=== PATIENT | male | born 2005 | race Caucasian/White ===

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

== ENCOUNTER 2023-11-05 13:01 | Emergency (ER) | payer MEDICAID ==
[2023-11-05 13:23] VITALS: PULSE 60; TEMP 98
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
[2023-11-05 14:15] VITALS: O2SAT 100
--- NOTE | 2023-11-05 14:26 | XRAY ---
Indication: Left upper quadrant pain. Multiple contiguous axial images obtained through the abdomen and pelvis without contrast. Comparison: None Lung bases clear. Heart is not enlarged. Noncontrasted stomach and bowel loops appear nonobstructed. Appendix not visualized. A few tiny hepatic calcified granulomas. No free fluid/air. Remaining liver, gallbladder, pancreas, spleen, adrenal glands, kidneys, ureters, bladder, and aorta are unremarkable for noncontrast exam. Osseous structures intact. No ventral or inguinal hernias. Impression: Negative CT abdomen/pelvis without contrast exam.
--- NOTE | 2023-11-05 14:38 | XRAY ---
Indication: Pain following injury one week ago. Comparison: None 2 view left ribs obtained. No bony, articular, or soft tissue abnormalities.
[2023-11-05 14:42] VITALS: BP 136/67
== END 2023-11-05 14:42 | disposition home or self-care (01) ==
LOC: ED 13:01
DX: S20.212A Contusion of left front wall of thorax, initial encounter (principal); V89.2XXA Person injured in unspecified motor-vehicle accident, traffic, initial encounter; R10.12 Left upper quadrant pain; R07.81 Pleurodynia; Z72.0 Tobacco use
CPT/HCPCS: 71100; 74176; 99283

== ENCOUNTER 2023-12-10 19:03 | Emergency (ER) | payer MEDICAID ==
[2023-12-10 19:34] VITALS: TEMP 98.1; O2SAT 99
[2023-12-10 19:34] LABS: Absolute Neutrophil Ct (ANC) 8.42 x10^3/uL (1.4-6.9); BASOPHIL % 0.6 % (0.0-0.4); Basophil (Absolute #) 0.07 x10^3/uL (0-0.4); Eosinophil % 1.3 % (0.00-5.0); Eosinophil (Absolute #) 0.14 x10^3/uL (0-0.5); Hematocrit 45.7 % (42-50); Hemoglobin 15.8 g/dL (12.5-18.0); IMMATURE GRAN # 0.04 x10^3u/L (0.00-0.03); IMMATURE GRAN % 0.4 % (0.00-0.4); Lymphocytes % 15.5 % (24.0-44.0); Mean Cell Volume 87.9 fL (78-100); Mean Corpuscular Hemoglobin 30.4 pg (26-32); Mean Corpuscular Hgb Concent. 34.6 g/dL (32-36); Mean Platelet Volume 10.7 fL (7.5-11.0); Monocyte (Absolute #) 0.63 x10^3/uL (0.0-1.3); Monocytes % 5.7 % (0.0-12.0); Neutrophil % 76.5 % (36.0-66.0); Platelet Count 312 x10^3/uL (150-450); Red Cell Distribution Width 11.8 % (11.5-14.0)
[2023-12-10] MEDS ORDERED: BABY ASPIRIN 81 MG CHEW ONE (19:37)
[2023-12-10] MEDS ORDERED: TORAdol 30 mg Injection ONE (19:37)
[2023-12-10] MEDS: TORAdol 30 mg Injection IV ONE (19:38)
[2023-12-10] MEDS: BABY ASPIRIN 81 MG CHEW PO ONE (19:38)
[2023-12-10 19:39] LABS: ALBUMIN 4.2 g/dL (3.5-5.0); ANION GAP 12.3 MEQ/L (5-15); BILIRUBIN,TOTAL 0.7 mg/dL (0.2-1.3); Calcium 9.3 mg/dL (8.4-10.2); Creatinine 1 1.01 mg/dL (0.66-1.25); D-DIMER QUANTITATIVE < 0.19 mg/L (0.0-0.50); Direct Bilirubin 0.2 mg/dL (0.0-0.4); EST GLOMERULAR FILTRATION RATE 109.2 ML/MIN; INR 1.02 (0.8-3.0); PROTIME 11.1 SECONDS (9.4-12.5); PTT 25.9 SECONDS (25.1-36.5); Potassium 3.8 mmol/L (3.5-5.1); Total Protein 7.1 g/dL (6.3-8.2)
[2023-12-10 19:51] LABS: NT PRO BNPII < 20.0 pg/mL (<300); TROPONIN < 0.012 ng/mL (0.000-0.033)
--- NOTE | 2023-12-10 20:46 | ERPHSYRPT ---
- History of Present Illness Time Seen by Provider: 12/10/23 19:45 Historian: patient Exam Limitations: no limitations Patient Subjective Stated Complaint: pt states that while working at approx 1900 on Wednesday12/07/23 he started experiencing bilat upper chest "pressure" that has been constant since that time. he rates it 7/10 and reports it is associated with intermittent MEEK and dizziness. denies dizziness at this time. Triage Nursing Assessment: pt ambulated to room 4 independently with slow steady gait. pt is alert and oriented times three, able to move all extremities, able to speak in complete sentences, and with resp even and unlabored. heart sounds present and regular upon auscultation. bilat anterior/ posterior lung sounds clear throughout. bilat radial and pedal pulses palpable. no JVD or edema noted. skin warm, dry, pink, and intact. reports MEEK and bilat upper chest pain is nonradiating, constant, rated 7/10, and described as pressure. denies lightheadedness, dizziness, n/v, diarrhea, constipation, difficulty with urinary or bowel elimination, change in appetite, fever, cough, chills, sob, or difficulty breathing. Physician History: 18 years old healthy male with history of occasional smoking presented in the ER with complains of chest pain across dull aching to pressure moderate intensity without any significant aggravating or relieving factors, constant for the last 3 days. No associated palpitations or shortness of breath. Does report feeling dizziness and headache at times. Currently patient does not have any headache or dizziness. No fever chills or cough reported. No history of coronary artery disease or chest pains in the past. No known sick contact. Patient reports it feels as if his ribs are being pushed. Aspirin Treatment Today: no aspirin today Allergies/Adverse Reactions: No Known Drug Allergies Allergy (Verified 12/10/23 19:06) Home Medications: No Reportable Medications [No Reported Medications] 12/10/23 [History] Hx Tetanus, Diphtheria Vaccination/Date Given: Yes Hx Influenza Vaccination/Date Given: No Hx Pneumococcal Vaccination/Date Given: No Immunizations Up to Date: No Travel Risk - International Travel Have you traveled outside of the country in past 3 weeks: No - Emerging Infectious Disease Are you exhibiting symptoms associated with any current EIDs: No - Review of Systems Constitutional: No Symptoms Eyes: No Symptoms Ears, Nose, & Throat: No Symptoms Cardiac: Chest Pain Abdominal/Gastrointestinal: No Symptoms Genitourinary Symptoms: No Symptoms Musculoskeletal: No Symptoms Skin: No Symptoms Neurological: No Symptoms Psychological: No Symptoms Endocrine: No Symptoms Hematologic/Lymphatic: No Symptoms - Past Medical History Pertinent Past Medical History: Yes Neurological History: No Pertinent History ENT History: No Pertinent History Cardiac History: No Pertinent History Respiratory History: Asthma Endocrine Medical History: No Pertinent History Musculoskeletal History: Other GI Medical History: No Pertinent History History: No Pertinent History Psycho-Social History: Bipolar Male Reproductive Disorders: No Pertinent History Other Medical History: ADHD, scoliosis - Past Surgical History Past Surgical History: Yes Neuro Surgical History: No Pertinent History Cardiac: No Pertinent History Respiratory: No Pertinent History Gastrointestinal: No Pertinent History Genitourinary: No Pertinent History Musculoskeletal: Orthopedic Surgery Male Surgical History: No Pertinent History Other Surgical History: right hand- fracture repair - Social History Smoking Status: Current every day smoker How long have you smoked: 10yo Exposure to second hand smoke: Yes Drug Use: none Patient Lives Alone: No - Nursing Vital Signs Nursing Vital Signs: Initial Vital Signs Pulse Rate 72 12/10/23 19:03 Respiratory Rate 15 12/10/23 19:03 Blood Pressure 143/73 12/10/23 19:03 O2 Sat by Pulse Oximetry 98 12/10/23 19:03 Pain Scale Pain Intensity 6 - Physical Exam General Appearance: no apparent distress, alert Eye Exam: PERRL/EOMI Ears, Nose, Throat Exam: normal ENT inspection Neck Exam: normal inspection, non-tender, supple, full range of motion Respiratory Exam: normal breath sounds, lungs clear, No chest tenderness Cardiovascular Exam: regular rate/rhythm, normal heart sounds Gastrointestinal/Abdomen Exam: soft, No tenderness Back Exam: normal inspection, normal range of motion Extremity Exam: normal inspection, normal range of motion Neurologic Exam: alert, oriented x 3, cooperative, 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, normal mood/affect, nml cerebellar function, nml station & gait, sensation nml, No motor deficits Skin Exam: normal color SpO2 Interpretation: normal SpO2: 99 O2 Delivery: Room Air - Course EKG Interpreted by Me: RATE (75), Sinus Rhythm, NORMAL AXIS, NORMAL QRS Ordered Tests: Medication Summary Discontinued Medications Generic Name Dose Route Start Last Admin Trade Name Freq PRN Reason Stop Dose Admin Aspirin 324 mg 12/10/23 19:21 04/26/24 19:38 Aspirin 81 Mg Tab.Chew PO 12/10/23 19:22 324 mg STAT ONE Administration Aspirin Confirm 12/10/23 19:37 Aspirin 81 Mg Tab.Chew Administered 12/10/23 19:38 Dose 324 mg .ROUTE .STK-MED ONE Ketorolac Tromethamine 30 mg 12/10/23 19:29 12/10/23 19:38 Ketorolac Tromethamine 30 Mg/Ml Inj IV 12/10/23 19:30 30 mg STAT ONE Administration Ketorolac Tromethamine Confirm 12/10/23 19:37 Ketorolac Tromethamine 30 Mg/Ml Inj Administered 12/10/23 19:38 Dose 30 mg .ROUTE .CamStent-MED ONE Lab/Rad Data: Laboratory Result Diagrams 12/10/23 19:27 12/10/23 19:27 Laboratory Results 12/10/23 12/10/23 12/10/23 Range/Units 19:27 19:27 19:27 WBC (4.0-10.5) x10^3/uL RBC (4.1-5.6) x10^6/uL Hgb (12.5-18.0) g/dL Hct (42-50) % MCV (78-100) fL MCH (26-32) pg MCHC (32-36) g/dL RDW (11.5-14.0) % Plt Count (150-450) x10^3/uL MPV (7.5-11.0) fL Gran % (36.0-66.0) % Immature Gran % (Auto) (0.00-0.4) % Nucleat RBC Rel Count (0.00-0.1) % Eos # (Auto) (0-0.5) x10^3/uL Immature Gran # (Auto) (0.00-0.03) x10^3u/L Absolute Lymphs (auto) (1.0-4.6) x10^3/uL Absolute Monos (auto) (0.0-1.3) x10^3/uL Absolute Nucleated RBC (0.00-0.01) x10^3u/L Lymphocytes % (24.0-44.0) % Monocytes % (0.0-12.0) % Eosinophils % (0.00-5.0) % Basophils % (0.0-0.4) % Absolute Granulocytes (1.4-6.9) x10^3/uL Basophils # (0-0.4) x10^3/uL PT 11.1 (9.4-12.5) SECONDS INR 1.02 (0.8-3.0) APTT 25.9 (25.1-36.5) SECONDS D-Dimer < 0.19 (0.0-0.50) mg/L Sodium 143 (135-145) mmol/L Potassium 3.8 (3.5-5.1) mmol/L Chloride 108 H (98-107) mmol/L Carbon Dioxide 26 (22-30) mmol/L Anion Gap 12.3 (5-15) MEQ/L BUN 10 (9-20) mg/dL Creatinine 1.01 (0.66-1.25) mg/dL Estimated GFR 109.2 ML/MIN Glucose 116 H (74-106) mg/dL Calcium 9.3 (8.4-10.2) mg/dL Total Bilirubin 0.70 (0.2-1.3) mg/dL Direct Bilirubin 0.2 (0.0-0.4) mg/dL AST 18 (17-59) U/L ALT 14 (0-50) U/L Alkaline Phosphatase 56 (38-126) U/L Creatine Kinase 75 (55-170) U/L Troponin I < 0.012 (0.000-0.033) ng/mL NT-Pro-B Natriuret Pep < 20.0 (<300) pg/mL Serum Total Protein 7.1 (6.3-8.2) g/dL Albumin 4.2 (3.5-5.0) g/dL 12/10/23 Range/Units 19:27 WBC 11.0 H (4.0-10.5) x10^3/uL RBC 5.20 (4.1-5.6) x10^6/uL Hgb 15.8 (12.5-18.0) g/dL Hct 45.7 (42-50) % MCV 87.9 (78-100) fL MCH 30.4 (26-32) pg MCHC 34.6 (32-36) g/dL RDW 11.8 (11.5-14.0) % Plt Count 312 (150-450) x10^3/uL MPV 10.7 (7.5-11.0) fL Gran % 76.5 H (36.0-66.0) % Immature Gran % (Auto) 0.4 (0.00-0.4) % Nucleat RBC Rel Count 0.0 (0.00-0.1) % Eos # (Auto) 0.14 (0-0.5) x10^3/uL Immature Gran # (Auto) 0.04 H (0.00-0.03) x10^3u/L Absolute Lymphs (auto) 1.70 (1.0-4.6) x10^3/uL Absolute Monos (auto) 0.63 (0.0-1.3) x10^3/uL Absolute Nucleated RBC 0.00 (0.00-0.01) x10^3u/L Lymphocytes % 15.5 L (24.0-44.0) % Monocytes % 5.7 (0.0-12.0) % Eosinophils % 1.3 (0.00-5.0) % Basophils % 0.6 (0.0-0.4) % Absolute Granulocytes 8.42 H (1.4-6.9) x10^3/uL Basophils # 0.07 (0-0.4) x10^3/uL PT (9.4-12.5) SECONDS INR (0.8-3.0) APTT (25.1-36.5) SECONDS D-Dimer (0.0-0.50) mg/L Sodium (135-145) mmol/L Potassium (3.5-5.1) mmol/L Chloride (98-107) mmol/L Carbon Dioxide (22-30) mmol/L Anion Gap (5-15) MEQ/L BUN (9-20) mg/dL Creatinine (0.66-1.25) mg/dL Estimated GFR ML/MIN Glucose (74-106) mg/dL Calcium (8.4-10.2) mg/dL Total Bilirubin (0.2-1.3) mg/dL Direct Bilirubin (0.0-0.4) mg/dL AST (17-59) U/L ALT (0-50) U/L Alkaline Phosphatase (38-126) U/L Creatine Kinase (55-170) U/L Troponin I (0.000-0.033) ng/mL NT-Pro-B Natriuret Pep (<300) pg/mL Serum Total Protein (6.3-8.2) g/dL Albumin (3.5-5.0) g/dL - Progress Progress: improved, re-examined Air Movement: good Progress Note: 12/10/23 20:44 18 years old is evaluated for chest pain for the last 3 days. Patient has no difficulty breathing or palpitations. No tachypnea or tachycardia. Lungs bilateral clear to auscultation. Not in any distress. EKG is normal sinus rhythm with no acute ischemic changes. Negative troponins and D-dimer. Normal white count, fairly unremarkable chemistries. Chest x-ray negative for any acute cardiopulmonary findings reviewed by me, official report is pending. With his chest pain going on for the last 3 days and negative troponin I do not think patient needs second troponin, is low heart score, do not think patient needs to be admitted, will have him outpatient follow-up. He is feeling better after Toradol and aspirin. Discussed signs symptoms of worsening needing return to ER which she seems understanding. Counseled pt/family regarding: lab results, diagnosis, need for follow-up, rad results, smoking cessation Medical Desision Making - Diagnostic Testing Diagnostic test were ordered, analyzed, and reviewed by me: Yes Radiological Interpretation: Interpreted by me, Reviewed by me - Departure Departure Disposition: Home Clinical Impression: Atypical chest pain Condition: Stable Critical Care Time: No Referrals: MIKAEL LOJA MD [Primary Care Provider] - Follow Up with PCP/3 days Instructions: Angina (DC), Chest Pain (DC) Additional Instructions: Take Tylenol/ibuprofen as needed. Follow-up with primary care for reevaluation and may need referral for cardiology if has persistent chest pain. Return to ER for worsening chest pain or if having difficulty breathing, palpitations, dizziness lightheadedness etc.
[2023-12-10 20:50] VITALS: BP 106/60; PULSE 51; RESP 14
--- NOTE | 2023-12-11 07:43 | XRAY ---
Indication: Chest pain. Comparison: May 18, 2023 Portable apical lordotic chest again hyperinflated and clear. Heart not enlarged. Bony thorax intact. No new/acute findings.
== END 2023-12-10 21:21 | disposition home or self-care (01) ==
LOC: ED 19:03
DX: R07.89 Other chest pain (principal); Z72.0 Tobacco use
CPT/HCPCS: 36000; 36415; 71045; 80053; 82248; 82550; 83880; 84484; 85025; 85379; 85610; 85730; 93005; 93041; 94760; 96374; 99284; J1885; A9270-GY

== ENCOUNTER 2024-09-20 19:06 | Emergency (ER) | payer MEDICAID ==
[2024-09-20] MEDS ORDERED: XYLOCAINE 1% HCL 20 ML MDV IJ ONE (19:07)
[2024-09-20 20:13] VITALS: RESP 18; TEMP 99.6; O2SAT 100
[2024-09-20 20:15] VITALS: BP 121/72; PULSE 69
[2024-09-20] MEDS ORDERED: TORAdol 30 mg Injection ONE (20:19)
[2024-09-20] MEDS ORDERED: Rocephin 1000 MG INJ ONE (20:20)
[2024-09-20] MEDS ORDERED: DELTASONE 20 MG ONE (20:20)
[2024-09-20] MEDS ORDERED: XYLOCAINE 1% HCL 20 ML MDV ONE (20:20)
[2024-09-20] MEDS: Rocephin 1000 MG INJ IM ONE (20:21)
[2024-09-20] MEDS: TORAdol 30 mg Injection IM ONE (20:21)
[2024-09-20] MEDS: DELTASONE 20 MG PO ONE (20:21)
--- NOTE | 2024-09-20 20:24 | ERPHSYRPT ---
- History of Present Illness Time Seen by Provider: 09/20/24 20:17 Source: patient Exam Limitations: no limitations Patient Subjective Stated Complaint: c/o swollen sorethroat Triage Nursing Assessment: patient brought to ED by girlfriend with c/o sore throat and swollen lymph nodes. patient states that symptoms started three days ago and haven't gotten better. patient has slightly swollen lymph nodes, throat is slightly reddened, unable to assess ear at this time, patient denies ear pain or drainage. vitals wnl, skin w/n/d, gait steady, afevrile, patient doesn't appear to be in any distress at this time. Physician History: Patient is a 18-year-old male presents to our ED for evaluation of a sore throat and anterior cervical lymphadenopathy. Patient reports her symptoms started approximately 3 days ago. Symptoms have been progressive. Patient states it "hurts to swallow". Patient tolerating oral secretions well. Patient is conversant and displaying no distress. Patient denies ear pain. No trauma no f ever. Patient states he is otherwise healthy. He voices no other complaints or concerns at this time. No cough Portions of this note were created with voice recognition technology. There may be grammatical, spelling, punctuation or sound alike errors Timing/Duration: day(s) (3 days ago) Severity: moderate Modifying Factors: Improves With: nothing Associated Symptoms: denies symptoms Allergies/Adverse Reactions: No Known Drug Allergies Allergy (Verified 09/20/24 20:13) Hx Tetanus, Diphtheria Vaccination/Date Given: No Hx Influenza Vaccination/Date Given: No Hx Pneumococcal Vaccination/Date Given: No Travel Risk - International Travel Have you traveled outside of the country in past 3 weeks: No - Emerging Infectious Disease Are you exhibiting symptoms associated with any current EIDs: No - Review of Systems Constitutional: No Symptoms, No Fever, No Chills Eyes: No Symptoms Ears, Nose, & Throat: No Symptoms Respiratory: No Symptoms, No Cough, No Dyspnea Cardiac: No Symptoms, No Chest Pain, No Edema, No Syncope Abdominal/Gastrointestinal: No Symptoms, No Abdominal Pain, No Nausea, No Vomiting, No Diarrhea Genitourinary Symptoms: No Symptoms, No Dysuria Musculoskeletal: No Symptoms, No Back Pain, No Neck Pain Skin: No Symptoms, No Rash Neurological: No Symptoms, No Dizziness, No Focal Weakness, No Sensory Changes Psychological: No Symptoms Endocrine: No Symptoms Hematologic/Lymphatic: No Symptoms Immunological/Allergic: No Symptoms All Other Systems: Reviewed and Negative - Past Medical History Pertinent Past Medical History: Yes Neurological History: Migraines ENT History: No Pertinent History Cardiac History: No Pertinent History Respiratory History: Asthma Endocrine Medical History: No Pertinent History Musculoskeletal History: Fractures GI Medical History: No Pertinent History History: No Pertinent History Psycho-Social History: Bipolar Male Reproductive Disorders: No Pertinent History Other Medical History: fx right hand - Past Surgical History Past Surgical History: No Neuro Surgical History: No Pertinent History Cardiac: No Pertinent History Respiratory: No Pertinent History Gastrointestinal: No Pertinent History Genitourinary: No Pertinent History Musculoskeletal: Orthopedic Surgery Male Surgical History: No Pertinent History Other Surgical History: right hand repair - Social History Smoking Status: Never smoker How long have you smoked: 10yo Exposure to second hand smoke: No Drug Use: none Patient Lives Alone: No - Social Determinants of Health Will the patient participate in the screening: Yes Do you worry about a steady place to live?: No Do you have any problems with any of the following?: No known problems In the past 12 months,have you had to go without utilities?: No Transportation Issues: No Has anyone in your support network made you feel unsafe?: No Have you or anyone in your house had to go without enough: No - Nursing Vital Signs Nursing Vital Signs: Initial Vital Signs Temperature 99.6 F 09/20/24 19:56 Pulse Rate 77 09/20/24 19:56 Respiratory Rate 18 09/20/24 19:56 Blood Pressure 127/83 09/20/24 19:56 O2 Sat by Pulse Oximetry 100 09/20/24 19:56 Pain Scale Pain Intensity 7 - Physical Exam General Appearance: no apparent distress, alert Eye Exam: PERRL/EOMI, eyes nml inspection Ears, Nose, Throat Exam: normal ENT inspection, TMs normal, moist mucous membranes, tonsillar exudate, other (Bilaterally enlarged tonsils with posterior white exudate. Anterior cervical lymphadenopathy.) Neck Exam: normal inspection, non-tender, supple, full range of motion Respiratory Exam: normal breath sounds, lungs clear, airway intact, No respiratory distress Cardiovascular Exam: regular rate/rhythm, normal heart sounds, normal peripheral pulses Gastrointestinal/Abdomen Exam: soft, normal bowel sounds, No tenderness, No mass Back Exam: normal inspection, normal range of motion, No CVA tenderness, No vertebral tenderness Extremity Exam: normal inspection, normal range of motion, pelvis stable Neurologic Exam: alert, oriented x 3, cooperative, normal mood/affect, sensation nml, No motor deficits Skin Exam: normal color, warm, dry, No rash Lymphatic Exam: No adenopathy SpO2 Interpretation: normal SpO2: 100 O2 Delivery: Room Air - Course Nursing assessment & vital signs reviewed: Yes Ordered Tests: Medication Summary Generic Name Dose Route Start Last Admin Trade Name Lincoln PRN Reason Stop Dose Admin Ceftriaxone Sodium 1,000 mg 09/20/24 20:15 Ceftriaxone Sodium 1000 Mg Inj Vial IM 09/20/24 20:16 STAT ONE Ketorolac Tromethamine 30 mg 09/20/24 20:16 Ketorolac Tromethamine 30 Mg/Ml Inj IM 09/20/24 20:17 STAT ONE Prednisone 60 mg 09/20/24 20:16 Prednisone 20 Mg Tablet PO 09/20/24 20:17 STAT ONE - Progress Progress: improved Progress Note: 18-year-old male presents to our ED for evaluation of sore throat. Physical exam reveals enlarged tonsils with exudate. Anterior cervical lymphadenopathy patient lacks a cough. Diagnosis made clinically based on [facility] criteria. Patient received an IM dose of Rocephin and Toradol. Patient received an oral dose of prednisone. A prescription for the same forwarded to patient's pharmacy. Patient agrees to follow-up with his primary care doctor within 48 hours for reevaluation. He voices no other complaints or concerns at this time. Portions of this note were created with voice recognition technology. There may be grammatical, spelling, punctuation or sound alike errors Complexity of problem addressed is moderate acute complicated. No critical care time. Complex of data reviewed and analyzed is none. No specialized testing ordered. Diagnosis made based on history and physical exam. Risk of complication and or risk of morbidity/mortality of patient management is moderate. Prescriptions forwarded to patient's pharmacy. Vital stable. Time spent to discharge patient is approximately 15 minutes. Plan of care establishe d for shared decision making. No social determinants of health present to impede follow-up. Portions of this note were created with voice recognition technology. There may be grammatical, spelling, punctuation or sound alike errors 09/20/24 20:24 Counseled pt/family regarding: diagnosis, need for follow-up - Departure Departure Disposition: Home Clinical Impression: Strep throat Condition: Stable Critical Care Time: No Referrals: MIKAEL LOJA MD [Primary Care Provider] - Follow up/PCP as directed Additional Instructions: Discharge/Care Plan LILY RAMIREZ was seen on 09/20/24 in the Emergency Room. The patient was counseled regarding Diagnosis,Lab results, Imaging studies, need for follow up and when to return to the Emergency Room. Prescriptions given: Discharge Note I have spoken with the patient and/or caregivers. I have explained the patient's condition, diagnosis and treatment plan based on the information available to me at this time. I have answered the patient's and/or caregiver's questions and addressed any concerns. The patient and/or caregivers have as good understanding of the patient's diagnosis, condition and treatment plan as can be expected at this point. The vital signs have been stable. The patient's condition is stable and appropriate for discharge from the emergency department. The patient will pursue further outpatient evaluation with the primary care physician or other designated or consulting physician as outlined in the disch arge instructions. The patient and/or caregivers are agreeable to this plan of care and follow-up instructions have been explained in detail. The patient and/or caregivers have received these instruction. The patient/and or caregivers are aware that any significant change in condition or worsening of symptoms should prompt an immediate return to this or the closest emergency department or call 911. Prescriptions: Amox Tr/Potass Clav. 875 mg [Augmentin 875-125 Tablet] 875 mg PO STAT 7 Days #14 tablet Prednisone 10 mg [Deltasone 10 mg] 40 mg PO DAILY 3 Days #12 tablet Ketorolac Trometh 10 mg Tab [TORAdol 10 MG TABLET] 10 mg PO TID 5 Days #15 tablet
== END 2024-09-20 21:08 | disposition home or self-care (01) ==
LOC: ED 19:06
DX: J02.0 Streptococcal pharyngitis (principal); R59.0 Localized enlarged lymph nodes; Z79.52 Long term (current) use of systemic steroids; Z79.899 Other long term (current) drug therapy
CPT/HCPCS: 96372; 99283; 99284; J0696; J1885; A9270-GY

== ENCOUNTER 2024-11-12 15:21 | Emergency (ER) | payer MEDICAID ==
[2024-11-12 15:46] VITALS: TEMP 98.3
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
[2024-11-12 16:32] VITALS: BP 119/74; PULSE 74; RESP 18
[2024-11-12 16:34] VITALS: O2SAT 98
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
== END 2024-11-12 16:43 | disposition home or self-care (01) ==
LOC: ED 15:21
DX: M25.511 Pain in right shoulder (principal); Z72.0 Tobacco use; Z59.819 Housing instability, housed unspecified; Z59.12 Inadequate housing utilities
CPT/HCPCS: 73030; 73060; 99283